=== PATIENT | male | born 1970 | race Caucasian/White ===

== ENCOUNTER 2020-10-16 20:29 | Observation (INO) | payer OTHER, SELFPAY ==
[2020-10-16 20:30] VITALS: BP 112/83; PULSE 110; RESP 16; TEMP 36.1; O2SAT 96; BMI 29.9
--- NOTE | 2020-10-16 20:54 | CT_ITS ---
EXAM: CT HEAD WITHOUT INTRAVENOUS CONTRAST : 1970 CLINICAL INDICATION: dizziness TECHNIQUE: Multiple axial images were obtained of the head without intravenous contrast. This CT exam was performed using one or more of the following dose reduction techniques: automated exposure control, adjustment of the mA and/or kV according to patient size, and/or use of iterative reconstruction technique. This report was created using [employer] report generation technology. COMPARISON: None. FINDINGS: BRAIN AND EXTRA-AXIAL SPACES: Unremarkable. No intra- or extra-axial hemorrhage. No evidence of acute infarct. No intracranial mass or mass effect. There is preservation of the montgomery/white matter interface. Posterior fossa structures are unremarkable. Ventricles are appropriate for age. No hydrocephalus. Basal cisterns are patent. BONES/JOINTS: Unremarkable. No discrete lytic or blastic abnormalities. SINUSES: Unremarkable as visualized. Clear. MASTOID AIR CELLS: Unremarkable. Clear. ORBITS: Visualized globes, extraocular muscles, optic nerves and retrobulbar fat appear unremarkable. CT/Brain/Head without Contrast IMPRESSION: Negative head/brain CT without intravenous contrast. Individualized dose optimization techniques were used for this CT. at 2210 Reported and signed by: Rohan Chavez MD Electronically Signed: Rohan Chavez MD at 22:10 EDT Tel , Service support ,
--- NOTE | 2020-10-16 20:54 | EKG12_ITS ---
Test Reason : DIZZINESS Blood Pressure : / mmHG Vent. Rate : 106 BPM Atrial Rate : 106 BPM P-R Int : 416 ms QRS Dur : 086 ms QT Int : 364 ms P-R-T Axes : 015 043 014 degrees QTc Int : 483 ms Sinus tachycardia with 1st degree A-V block Otherwise normal ECG Confirmed by BC GONZALEZ, CHICO ([id number]), photo editor MADISON WOODS ([id number]) on 10/20/2020 1:05:23 PM Referred By: ANANDA Confirmed By:CIHCO YANCEY MD
--- NOTE | 2020-10-16 20:55 | EDS_ITS ---
HPI History of Present Illness Chief Complaint: Dizziness Detail of Chief Complaint: Dizziness that started 24 hours ago. Informant: patient Narrative Narrative: Patient presents to the emergency department complaint of dizziness that started 24 hours ago. Patient complains of lightheadedness especially with turning his head certain ways or bending over to pick things up. He denies any overt tenderness type symptoms. Patient gives history that he was sick about 3 weeks ago with body aches and sweats and fatigue that lasted about 36 hours. He denied cough at that time or other Covid symptoms. He had no loss of taste or smell. Patient denies any chest pain or shortness of breath. He did have some discomfort in his right shoulder 3 weeks ago and some discomfort to his skin on his scalp that is now mostly resolved. Patient denies any chest pain or palpitations. Prior similar symptoms: No PFSH PFS Medical History (Updated 10/16/20 @ 22:[address] Cele Fish, DO) Erectile dysfunction Home Medications tadalafil [Cialis] 5 mg PO PRN PRN 10/16/20 [History Last Taken Unknown] Allergy/AdvReac Type Severity Reaction Status Date / Time venom-honey bee Allergy Anaphylaxis Verified 10/16/20 20:33 [bee venom (honey bee)] Surgical History (Updated 10/16/20 @ 20:45 by Gillian Tolbert) History of orthopedic surgery Social History Smoking Status: Former smoker ROS ROS ED Constitutional Constitutional ED: Reports systems reviewed and no addt'l complaints, except as documented; Denies body ache(s), change in weight or chills Eyes Eyes: Denies acute decrease in peripheral vision, change in vision, double vision or loss of vision ENT ENT ED: Reports none; Denies ear pain, lip swelling, loss taste/smell, neck pain, otalgia or sore throat Cardiovascular Cardiovascular: Reports none; Denies abdominal pain, chest pain with activity, leg edema, lightheadedness, palpitations, rapid heart rate or syncope Respiratory/Chest Respiratory/Chest: Reports none; Denies change in mental status, dry cough, dyspnea, hemoptysis, shortness of breath at rest or shortness of breath with exertion Gastrointestinal Gastrointestinal: Reports none; Denies abdominal pain, change in stool character, diarrhea, hematemesis, hematochezia, melena, rectal bleeding or vomiting Genitourinary Genitourinary ED: Reports none; Denies abdominal discomfort, anuria, dysuria, genital pain or polyuria Musculoskeletal Musculoskeletal: Reports none; Denies arthralgias, back pain, difficulty walking, extremity pain, muscle weakness or myalgias Integumentary Reports none; Denies abscess or rash Neurologic Neurologic: Reports none and other Details: Dizziness ; Denies abnormal gait, confusion, focal weakness, frequent falls, headache(s), loss of vision, numb ness, paresthesias, radicular pain, vertigo or weakness Psychiatric Psychiatric: Reports systems reviewed and no addt'l complaints, except as documented and none; Denies behavioral changes, confusion, difficulty concentrating, hallucinations, suicidal ideation, tactile hallucinations or visual hallucinations Endocrine Endocrinology: Denies none, cold intolerance, excessive sweating, fatigue or heat intolerance Hematologic/Lymphatic Hematologic/Lymphatic: Reports none; Denies anemia, easy bleeding or easy bruising Allergic/Immunologic Allergic/Immunologic ED: Denies as per HPI, none, lip swelling, mouth swelling, throat swelling, tongue swelling or hives EXAM Physical Exam Const Vital Signs: 10/16/20 20:30 10/16/20 20:41 10/16/20 21:14 Temperature 96.9 F L Temperature Source Temporal Pulse Rate 110 H Pulse Rate [Lying] 99 Pulse Rate [Sitting] 106 H Pulse Rate [Standing] 118 H Respiratory Rate 16 Respiratory Effort Normal Non-Labored Respiratory Pattern Normal Blood Pressure 112/83 H Blood Pressure [Lying] 91/68 Blood Pressure [Sitting] 111/72 Blood Pressure [Standing] 96/72 Blood Pressure Mean 92 Blood Pressure Mean [Lying] 75 Blood Pressure Mean [Sitting] 85 Blood Pressure Mean [Standing] 80 Pulse Ox 96 Oxygen Delivery Method Room Air Positive well nourished and well developed General Appearance ED: well developed and NAD HEENT Reports TM's clear and moist mucous membranes normocephalic and atraumatic; Negative for trauma or tenderness Tympanic Membrane ED: Yes TM's clear Eyes PERRL and EOMs intact bilaterally General Eye ED: Negative for pale conjunctiva or scleral icterus Neck no lymphadenopathy, supple and no JVD General: Negative for tenderness Chest Wall inspection of chest normal and palpation of chest normal Chest: Negative for tenderness Resp normal respiratory effort and clear to auscultation bilaterally Effort and Inspection: Negative for respiratory distress or pain with movement Auscultation: Negative for rhonchi, wheezes or diminished lung sounds Cardio regular rate, regular rhythm, S1 normal heart sound, S2 normal heart sound and no murmurs Peripheral Pulses: pulses 2+ throughout GI normal to inspection, nondistended, normoactive bowel sounds, soft to palpation, non-tender, non-distended and no masses Back/Spine no CVA tenderness and no thoracic nor lumbar tenderness Extremity normal to inspection General Extremety ED: Negative for edema General Extremity: Negative for edema Neuro oriented x3, CN's II-XII intact bilaterally, no sensory deficits noted and gait normal Neuro Narrative: Finger-nose and heel regan testing within normal limits, negative Romberg, negative pronator drift. Hallpike maneuver performed was negative for nystagmus. Sensorium / Orientation: awake, alert, oriented to person, oriented to place and oriented to time Motor Exam: strength 5/5 throughout and strength abnormal Psych mental status grossly normal Skin no rashes or lesions noted and no wounds MDM MDM MDM Narrative Medical decision making narrative: With orthostatic testing the patient's heart rate increases into the 120s and he is dizzy with standing. His blood pressure intermittently is in the 90s systolic which is unusual for him. Patient had repeat EKGs which showed accelerated junctional rhythm and questionable A. fib. Case discussed with hospitalist will evaluate patient for admission Lab Data Attestation: I reviewed the patient's lab results. Labs: Laboratory Results - last 24 hr 10/16/20 10/16/20 20:55 20:55 WBC 7.7 RBC 5.19 Hgb 14.9 Hct 45.4 MCV 87.5 MCH 28.7 MCHC 32.8 RDW Std Deviation 39.3 RDW Coeff of Marcello 12.4 Plt Count 376 MPV 9.2 Immature Gran % (Auto) 0.300 Neut % (Auto) 63.3 Lymph % (Auto) 19.4 Pocahontas % (Auto) 14.1 H Eos % (Auto) 2.3 Baso % (Auto) 0.6 Absolute Neuts (auto) 4.9 Absolute Lymphs (auto) 1.50 Nucleated RBC % 0 Sodium 139 Potassium 3.8 Chloride 108 H Carbon Dioxide 26.0 Anion Gap 5 BUN 20 H Creatinine 1.15 Estim Creat Clear Calc 83.67 Est GFR (MDRD) Af Amer 87 Est GFR (MDRD) Non-Af 72 BUN/Creatinine Ratio 17.4 Glucose 94 Calcium 9.0 Troponin I High Sens 7.3 EKG Initial EKG: Attestation: I personally reviewed and interpreted this EKG as follows: Comments: Computer read EKG as sinus tachycardia however I suspect a likely junctional tachycardia. Treatment and Re-Evaluation Comments:: Repeat EKG obtained showed accelerated junctional rhythm followed by another EKG that showed short run of atrial fibrillation. Discharge Plan Triage Chief Complaint: Dizziness ED Provider: Cele Fish Dx/Rx/DC Orders Clinical Impression: Cardiac dysrhythmia, Orthostatic hypotension, Dizziness Prescriptions: No Action tadalafil [Cialis] 5 mg Tablet 5 mg PO PRN PRN (Reason: Erectile Dysfunction) RF: 0 Primary Care Provider: Deepthi Barrios Referrals: Deepthi Barrios MD [Primary Care Provider] - Disposition Disposition: Acute Care Hospital [facility]
[2020-10-16 21:10] LABS: Absolute Neutrophil Count 4.9 X10^3/uL (2.0-7.7); Basophil# 0.05 X10^3/uL; Basophil% 0.6 % (0-1); Eosinophil# 0.18 X10^3/uL; Eosinophils% 2.3 % (0-5); Hematocrit 45.4 % (40-54); Hemoglobin 14.9 g/dL (13.0-16.5); Lymphocyte % 19.4 % (19-41); Mean Corp Hgb Conc 32.8 g/dL (32-36); Mean Corpuscular Hgb 28.7 pg (27.0-32.0); Mean Corpuscular Volume 87.5 fL (80-94); Mean Platelet Vol. 9.2 fl (6.2-12.0); Monocyte# 1.09 X10^3/uL; Monocyte% 14.1 % (0-10); NRBC Flagged by Analyzer 0 % (0-5); Neutrophil # 4.88 X10^3/uL (2.7-7.7); Neutrophil % 63.3 % (47-70); Platelet Count 376 K/mm3 (150-450); RBC Distribution Width CV 12.4 % (11.6-14.6); RBC Distribution Width SD 39.3 fl (35.1-43.9); Red Blood Count 5.19 M/mm3 (4.6-6.2); White Blood Count 7.7 K/mm3 (4.4-11.0)
[2020-10-16] MEDS: Meclizine HCl 25 MG Tablet PO (21:11)
[2020-10-16 21:14] VITALS: BP 111/72; BP 91/68; BP 96/72; PULSE 106; PULSE 118; PULSE 99
[2020-10-16 21:25] LABS: Anion Gap 5 (5-15); BUN 20 mg/dL (7-18); BUN/Creat Ratio 17.4 RATIO (10-20); Chloride 108 mmol/L (98-107); Creatinine, Serum 1.15 mg/dL (0.70-1.30); EST Glomerular Filtration Rate 72 mL/min (>60); Est Glom Filt Rate - Afr Amer 87 mL/min (>60); Estimated Creatinine Clearance 83.67 ml/min; Glucose 94 mg/dL (74-106); Potassium 3.8 mmol/L (3.5-5.1); Sodium Level 139 mmol/L (136-145); Troponin-I HS 7.3 pg/mL (3.0-78.5)
--- NOTE | 2020-10-16 21:52 | EKG12_ITS ---
Test Reason : DYSRYTHMIA Blood Pressure : / mmHG Vent. Rate : 103 BPM Atrial Rate : 101 BPM P-R Int : 000 ms QRS Dur : 086 ms QT Int : 356 ms P-R-T Axes : 000 031 021 degrees QTc Int : 466 ms Accelerated Junctional rhythm with retrograde conduction Abnormal ECG Confirmed by BC GONZALEZ, CHICO ([id number]), food editor MADISON WOODS ([id number]) on 10/20/2020 1:05:45 PM Referred By: ANANDA Confirmed By:CHICO YANCEY MD
--- NOTE | 2020-10-16 21:53 | EKG12_ITS ---
Test Reason : DYSRYTHMIA Blood Pressure : / mmHG Vent. Rate : 096 BPM Atrial Rate : 101 BPM P-R Int : 000 ms QRS Dur : 086 ms QT Int : 360 ms P-R-T Axes : 000 058 014 degrees QTc Int : 454 ms Atrial fibrillation Septal infarct , age undetermined Abnormal ECG Confirmed by BC GONZALEZ, CHICO ([id number]), website/blog editor MADISON WOODS ([id number]) on 10/20/2020 1:06:02 PM Referred By: ANANDA Confirmed By:CHICO YANCEY MD
[2020-10-16 22:24] VITALS: BP 120/86; PULSE 94; RESP 22; TEMP 36.1; O2SAT 98
--- NOTE | 2020-10-16 22:34 | PCM.HP.STD ---
HPI - General General Date of Admission: 10/16/20 Date of Service: 10/16/20 Chief Complaint: Lightheadedness HPI Narrative CHARLA RUIZ, is a 49 M with previous no significant medical history who presents to emergency department with persistent lightheadedness that started about 24 hours prior to presentation. His lightheadedness is more pronounced when he sits up and when he moves his head. He became so lightheadedness and things felt dark that he almost took a knee. He feels like blood rushing into his head. When he bends his knees he also feels like blood rushing to his extremities. Associated with her symptom is jitteriness. He denies any palpitations. At the emergent department he felt lightheaded with standing up; also he had T wave changes when he stood up. Further he had multiple different EKGs morphologies at the emergency department. He reported that about 3 to 4 weeks ago he was ill. He described his illness as a tightness in his shoulders; malaise; muscle aches; and severe lethargy. He denied any loss of taste or smell sensation at that time. This illness lasted for about 2 days. [facility] Medical History Alcohol abuse Carpal tunnel syndrome of right wrist Erectile dysfunction Former smoker GERD (gastroesophageal reflux disease) Home Medications tadalafil [Cialis] 5 mg PO PRN PRN 10/16/20 [History Last Taken Unknown] Allergy/AdvReac Type Severity Reaction Status Date / Time venom-honey bee Allergy Anaphylaxis Verified 10/16/20 20:33 [bee venom (honey bee)] Family History Sister Breast cancer Surgical History History of orthopedic surgery Social History household members: spouse and family housing: house number of children: 2 service: No current occupational status: 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 Vital Signs Vital Signs Vital Signs: 10/16/20 20:30 10/16/20 20:41 10/16/20 21:14 Temperature 96.9 F L Temperature Source Temporal Pulse Rate 110 H Pulse Rate [Lying] 99 Pulse Rate [Sitting] 106 H Pulse Rate [Standing] 118 H Respiratory Rate 16 Respiratory Effort Normal Non-Labored Respiratory Pattern Normal Blood Pressure 112/83 H Blood Pressure [Lying] 91/68 Blood Pressure [Sitting] 111/72 Blood Pressure [Standing] 96/72 Blood Pressure Mean 92 Blood Pressure Mean [Lying] 75 Blood Pressure Mean [Sitting] 85 Blood Pressure Mean [Standing] 80 Pulse Ox 96 Oxygen Delivery Method Room Air 10/16/20 22:24 Temperature 96.9 F L Temperature Source Temporal Pulse Rate 94 Pulse Rate [Lying] Pulse Rate [Sitting] Pulse Rate [Standing] Respiratory Rate 22 H Respiratory Effort Respiratory Pattern Blood Pressure 120/86 H Blood Pressure [Lying] Blood Pressure [Sitting] Blood Pressure [Standing] Blood Pressure Mean 97 Blood Pressure Mean [Lying] Blood Pressure Mean [Sitting] Blood Pressure Mean [Standing] Pulse Ox 98 Oxygen Delivery Method Room Air Weight Weight: 97.522 kg Body Mass Index (BMI) 29.9 Results Lab / Micro Data Result Diagrams: 10/16/20 20:55 10/16/20 20:55 Labs: Laboratory Results - last 24 hr 10/16/20 10/16/20 20:55 20:55 WBC 7.7 RBC 5.19 Hgb 14.9 Hct 45.4 MCV 87.5 MCH 28.7 MCHC 32.8 RDW Std Deviation 39.3 RDW Coeff of Marcello 12.4 Plt Count 376 MPV 9.2 Immature Gran % (Auto) 0.300 Neut % (Auto) 63.3 Lymph % (Auto) 19.4 Mcpherson % (Auto) 14.1 H Eos % (Auto) 2.3 Baso % (Auto) 0.6 Absolute Neuts (auto) 4.9 Absolute Lymphs (auto) 1.50 Nucleated RBC % 0 Sodium 139 Potassium 3.8 Chloride 108 H Carbon Dioxide 26.0 Anion Gap 5 BUN 20 H Creatinine 1.15 Estim Creat Clear Calc 83.67 Est GFR (MDRD) Af Amer 87 Est GFR (MDRD) Non-Af 72 BUN/Creatinine Ratio 17.4 Glucose 94 Calcium 9.0 Troponin I High Sens 7.[address] 10/16/20 20:54 IMPRESSION: Negative head/brain CT without intravenous contrast. Individualized dose optimization techniques were used for this CT. at 2210 Reported and signed by: Rohan Chavez MD Electronically Signed: Rohan Chavez MD at 22:10 EDT Tel , Service support , Assessment & Plan Assessment/Plan (1) Cardiac dysrhythmia: QUALIFIERS: Arrhythmia type: other cardiac arrhythmia Qualified Code(s): I49.8 - Other specified cardiac arrhythmias (2) Orthostatic hypotension: PLAN: Dysrhythmia Will admit to the progressive care unit on telemetry. Differentials include POTS; atrial fibrillation; junctional tachycardia Review of Emergency department EKG showed junctional tachycardia; and EKG rhythm without P waves. EKG with prolonged QTC. Review of emergency department labs showed potassium of 3.8. Potassium replacement ordered. Check magnesium. Check TSH Radiologist impression of brain CT: Negative head/brain CT without intravenous contrast. Actual CT head image was independently visualized and I agree with radiologist interpretation. Cardiology consult Orthostatic hypotension At the ED reportedly although blood pressure did not drop with standing up patient had tachycardia and felt lightheaded with standing. IV fluids ordered. Repeat orthostatic blood pressure. Check echocardiogram. Alcohol abuse Counseled. Drinks about 3-4 beers about 2-3 times per week. DVT prophylaxis Subcutaneous Lovenox ordered. Charges/Coding Visit Charges OBSV E&M: [id number] Initial observation care L3
[2020-10-16 22:50] VITALS: BP 121/86; BP 124/67; BP 125/86; PULSE 105; PULSE 91
--- NOTE | 2020-10-16 22:50 | ECHOD_ITS ---
Reason For Study: Dizziness Procedure This was a 2D Doppler, Color Flow transthoracic echocardiogram. Exam performed portable in patient room. Left Ventricle Normal LV size. Moderate eccentric left ventricular hypertrophy. Left ventricular systolic function is normal. The estimated ejection fraction is 60 %. Normal diastology for age. No regional wall motion abnormalities noted. Right Ventricle Normal RV size. Normal systolic function. Atria Normal left atrium. Normal right atrium. Mitral Valve Normal mitral valve. Tricuspid Valve Normal tricuspid valve. Aortic Valve Normal aortic valve. Trisinus/trileaflet aortic valve. Pulmonic Valve Normal pulmonic valve. Great Vessels Normal aortic root. The pulmonary artery is normal size. Normal inferior vena cava. Pericardium/Pleural No pericardial effusion. MMode/2D Measurements & Calculations LVIDd: 4.3 cm IVSd: 1.6 cm LA dimension: 3.7 cm LVIDs: 2.7 cm LVPWd: 1.3 cm FS: 37.3 % LAV(MOD-bp): 61.6 ml LA A4 area: 20.7 cm2 RA A4 area: 19.4 cm2 LAV(MOD-bp) Indexed: 28.4 ml/m2 LAV(MOD-sp2): 56.5 ml LAV(MOD-sp4): 57.4 ml Time Measurements MV dec time: 0.11 sec Doppler Measurements & Calculations MV E max srini: 101.9 cm/sec Lat Peak E' Srini: 20.4 cm/sec Med Peak E' Srini: 15.6 cm/sec MV A max srini: 56.7 cm/sec E/E' lat: 5.0 E/E' med: 6.5 MV E/A: 1.8 MV V2 max: 120.4 cm/sec MV P1/2t max srini: 120.8 cm/sec Ao V2 max: 138.0 cm/sec MV max P.8 mmHg MV P1/2t: 35.7 msec Ao max P.6 mmHg MV V2 mean: 51.4 cm/sec MV dec slope: 990.4 cm/sec2 MV mean P.4 mmHg MVA(P1/2t): 6.2 cm2 MV V2 VTI: 20.9 cm LV V1 max: 134.7 cm/sec PA V2 max: 105.9 cm/sec LV V1 max P.3 mmHg ECHO/Echo Complete Interpretation Summary Normal LV size. Moderate eccentric left ventricular hypertrophy. Left ventricular systolic function is normal. The estimated ejection fraction is 60 %. Normal diastology for age. Ordering Physician: Jair De Jesus Referring Physician: Deepthi Barrios M.D. Performed By: Vini Masters RCS
[2020-10-16 22:51] VITALS: BP 126/71; PULSE 81; PULSE 87; RESP 16; TEMP 36.7; O2SAT 98; BMI 30.1
[2020-10-16 23:11] LABS: Magnesium 2.2 mg/dL (1.6-2.6)
[2020-10-16] MEDS: 0.9% Normal Saline 1,000 ML 125 ML IV (23:16)
[2020-10-16] MEDS: Potassium Chloride Oral Tablet 20 MEQ PO (23:24)
[2020-10-16] MEDS: 0.9% Saline Lock 10 ML Syringe IV (23:25)
[2020-10-16 23:39] VITALS: O2SAT 98
[2020-10-17] VITALS (9 sets, daily range): BP systolic 110–117; BP diastolic 69–79; PULSE 79–94; RESP 12–16; TEMP 36.8–37.1; O2SAT 94–97
[2020-10-17 06:04] LABS: Absolute Lymphocyte Count 1.03 X10^3/uL (0.83-4.51); Absolute Neutrophil Count 4.2 X10^3/uL (2.0-7.7); Basophil# 0.03 X10^3/uL; Basophil% 0.5 % (0-1); Eosinophil# 0.18 X10^3/uL; Eosinophils% 2.9 % (0-5); Hematocrit 44.2 % (40-54); Hemoglobin 14.3 g/dL (13.0-16.5); Lymphocyte # 1.03 X10^3/ul (0.83-4.51); Lymphocyte % 16.5 % (19-41); Mean Corp Hgb Conc 32.4 g/dL (32-36); Mean Corpuscular Hgb 28.5 pg (27.0-32.0); Mean Platelet Vol. 9.1 fl (6.2-12.0); Monocyte# 0.85 X10^3/uL; Monocyte% 13.6 % (0-10); NRBC Flagged by Analyzer 0 % (0-5); Neutrophil # 4.15 X10^3/uL (2.7-7.7); Neutrophil % 66.2 % (47-70); Platelet Count 315 K/mm3 (150-450); RBC Distribution Width CV 12.5 % (11.6-14.6); RBC Distribution Width SD 39.8 fl (35.1-43.9); Red Blood Count 5.02 M/mm3 (4.6-6.2); White Blood Count 6.3 K/mm3 (4.4-11.0)
[2020-10-17 06:40] LABS: Anion Gap 6 (5-15); BUN 16 mg/dL (7-18); BUN/Creat Ratio 18.4 RATIO (10-20); Calcium,Total 8.1 mg/dL (8.5-10.1); Chloride 110 mmol/L (98-107); Creatinine, Serum 0.87 mg/dL (0.70-1.30); EST Glomerular Filtration Rate 99 mL/min (>60); Est Glom Filt Rate - Afr Amer 120 mL/min (>60); Estimated Creatinine Clearance 110.59 ml/min; Glucose 94 mg/dL (74-106); Potassium 3.8 mmol/L (3.5-5.1); Sodium Level 140 mmol/L (136-145)
[2020-10-17] MEDS: 0.9% Normal Saline 1,000 ML 125 ML IV ×2 (06:43→13:56)
[2020-10-17] MEDS: Enoxaparin 40 MG/0.4 ML Syringe SC (10:31)
--- NOTE | 2020-10-17 14:14 | CON.PCM.CA_ITS ---
Assessment & Plan Assessment/Plan (1) Cardiac dysrhythmia: QUALIFIERS: Arrhythmia type: other cardiac arrhythmia Qualified Code(s): I49.8 - Other specified cardiac arrhythmias PLAN: He does have cardiac dysrhythmia with sinus rhythm, Wenckebach periodicity, and intermittent junctional rhythm. His echocardiogram demonstrated significant eccentric left ventricular hypertrophy. Hypotension could be caused on the basis of relative dehydration or his dysrhythmia. At this particular time I would recommend that we place a 24-hour Holter monitor on him as an outpatient and then have him follow-up in the office. I would hold of f on any medication at this particular time. I had discussed this with him at the rounds this morning. Further recommendations will be made based on the results of his Holter monitor. Thank you for allowing me to participate in the care of your patient. Please don't hesitate to call if any issues arise. HPI Consult Data Date of Consult: 10/17/20 HPI Narrative HPI Narrative: CHARLA RUIZ, is a 49 M who presents with dizzy spells but no oseas syncope. He has had no previous cardiac history he denies any chest pain or paroxysmal nocturnal dyspnea or pedal edema. On admission he was noted to have some cardiac dysrhythmias and cardiology was called for further evaluation and management. He denies any chest pain or pressure. His EKG demonstrated normal sinus rhythm with a first-degree AV block Wenckebach periodicity as well as junctional rhythm. 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 Smoking Status: Former smoker ROS Constitutional Constitutional: Denies fever(s) or weight loss Eyes Eyes: Reports as per HPI ENT HEENT: Reports as per HPI Cardiovascular Cardiovascular: Reports other Respiratory/Chest Respiratory/Chest: Reports other Gastrointestinal Gastrointestinal: Denies change in bowel habits, nausea, vomiting or weight changes Genitourinary Genitourinary: Denies difficulty urinating Musculoskeletal Musculoskeletal: Denies joint stiffness or muscle weakness Integumentary Integumentary: Denies lesions Neurologic Neurologic: Reports dizziness; Denies syncope Psychiatric Psychiatric: Denies anxiety Endocrine Endocrinology: Denies excessive sweating or fatigue Hematologic/Lymphatic Hematologic/Lymphatic: Denies anemia Allergic/Immunologic Allergic/Immunologic: Denies seasonal rhinorrhea Physical Exam Const oriented x3 and healthy appearing Orientation / Consciousness: awake HEENT normocephalic Eyes PERRL and conjunctivae normal Neck supple, no JVD and no carotid bruits Chest inspection of chest normal Resp normal respiratory effort and clear to auscultation bilaterally Cardio Palpation: normal PMI Rate: regular rate Rhythm: regular rhythm Heart Sounds: S1 normal and S2 normal Peripheral Pulses: pulses 2+ throughout GI normal to inspection, nondistended, normoactive bowel sounds Extremity normal to inspection and no clubbing, cyanosis or edema Psych mental status grossly normal Objective Data Vital Signs: Vital Signs Temp Pulse Resp BP Pulse Ox 98.2 F 83 16 113/79 95 10/17/20 13:15 10/17/20 13:15 10/17/20 13:15 10/17/20 13:15 10/17/20 13:15 Oxygen Delivery Method Room Air Weight: 215 lb 13.321 oz Body Mass Index (BMI) 30.1 Intake & Output: Intake and Output for Last 24 Hours 10/15/20 10/16/20 10/17/20 23:59 23:59 23:59 Intake Total 500 / 500 2553.33 / 2553.33 Balance 500 / 500 2553.33 / 2553.33 Lab / Micro Data Result Diagrams: 10/17/20 05:46 10/17/20 05:46 Labs: Laboratory Results - last 24 hr 10/16/20 10/16/20 10/16/20 20:55 20:55 20:55 WBC 7.7 RBC 5.19 Hgb 14.9 Hct 45.4 MCV 87.5 MCH 28.7 MCHC 32.8 RDW Std Deviation 39.3 RDW Coeff of Marcello 12.4 Plt Count 376 MPV 9.2 Immature Gran % (Auto) 0.300 Neut % (Auto) 63.3 Lymph % (Auto) 19.4 [place] % (Auto) 14.1 H Eos % (Auto) 2.3 Baso % (Auto) 0.6 Absolute Neuts (auto) 4.9 Absolute Lymphs (auto) 1.50 Nucleated RBC % 0 Sodium 139 Potassium 3.8 Chloride 108 H Carbon Dioxide 26.0 Anion Gap 5 BUN 20 H Creatinine 1.15 Estim Creat Clear Calc 83.67 Est GFR (MDRD) Af Amer 87 Est GFR (MDRD) Non-Af 72 BUN/Creatinine Ratio 17.4 Glucose 94 Calcium 9.0 Magnesium 2.2 Troponin I High Sens 7.3 10/17/20 10/17/20 05:46 05:46 WBC 6.3 RBC 5.02 Hgb 14.3 Hct 44.2 MCV 88.0 MCH 28.5 MCHC 32.4 RDW Std Deviation 39.8 RDW Coeff of Marcell[place] 12.5 Plt Count 315 MPV 9.1 Immature Gran % (Auto) 0.300 Neut % (Auto) 66.2 Lymph % (Auto) 16.5 L [place] % (Auto) 13.6 H Eos % (Auto) 2.9 Baso % (Auto) 0.5 Absolute Neuts (auto) 4.2 Absolute Lymphs (auto) 1.03 Nucleated RBC % 0 Sodium 140 Potassium 3.8 Chloride 110 H Carbon Dioxide 24.0 Anion Gap 6 BUN 16 Creatinine 0.87 Estim Creat Clear Calc 110.59 Est GFR (MDRD) Af Amer 120 Est GFR (MDRD) Non-Af 99 BUN/Creatinine Ratio 18.4 Glucose 94 Calcium 8.1 L Magnesium Troponin I High Sens Cardiology Labs/Tests 10/16/20 20:55: WBC 7.7, RBC 5.19, Hgb 14.9, Hct 45.4, MCV 87.5, MCH 28.7, MCHC 32.8, Plt Count 376, MPV 9.2, Immature Gran % (Auto) 0.300, Neut % (Auto) 63.3, Lymph % (Auto) 19.4, [place] % (Auto) 14.1 H, Eos % (Auto) 2.3, Baso % (Auto) 0.6, Absolute Neuts (auto) 4.9, Nucleated RBC % 0 10/16/20 20:55: Sodium 139, Potassium 3.8, Chloride 108 H, Carbon Dioxide 26.0, Anion Gap 5, BUN 20 H, Creatinine 1.15, Est GFR (MDRD) Af Amer 87, Est GFR (MDRD) Non-Af 72, BUN/Creatinine Ratio 17.4, Glucose 94, Calcium 9.0 10/16/20 20:55: Magnesium 2.2 10/17/20 05:46: WBC 6.3, RBC 5.02, Hgb 14.3, Hct 44.2, MCV 88.0, MCH 28.5, MCHC 32.4, Plt Count 315, MPV 9.1, Immature Gran % (Auto) 0.300, Neut % (Auto) 66.2, Lymph % (Auto) 16.5 L, [place] % (Auto) 13.6 H, Eos % (Auto) 2.9, Baso % (Auto) 0.5, Absolute Neuts (auto) 4.2, Nucleated RBC % 0 10/17/20 05:46: Sodium 140, Potassium 3.8, Chloride 110 H, Carbon Dioxide 24.0, Anion Gap 6, BUN 16, Creatinine 0.87, Est GFR (MDRD) Af Amer 120, Est GFR (MDRD) Non-Af 99, BUN/Creatinine Ratio 18.4, Glucose 94, Calcium 8.1 L Rhythm: EKG: ECHO: Preserved left ventricular systolic function. Stress Test: Cardiac Cath: PCI: CT Surgery: Holter monitor: EPS: PPM: CXR: Chest CT Scan: Radiography Diagnostic Testing: Radiology Impression Brain CT 10/16/20 20:54 IMPRESSION: Negative head/brain CT without intravenous contrast. Individualized dose optimization techniques were used for this CT. at 2210 Reported and signed by: Rohan Chavez MD Electronically Signed: Rohan Chavez MD at 22:10 EDT Tel , Service support , Echocardiogram 10/16/20 22:50 Interpretation Summary Normal LV size. Moderate eccentric left ventricular hypertrophy. Left ventricular systolic function is normal. The estimated ejection fraction is 60 %. Normal diastology for age. Ordering Physician: Jair De Jesus Referring Physician: Deepthi Barrios M.D. Performed By: Vini Masters RCS
--- NOTE | 2020-10-17 14:42 | PCM.DC ---
Discharge Instructions Diet Discharge Diet: No restrictions Activity Discharge Activity: Return to Normal Activity Dressing / Incision Call your doctor if you observe: Fever of 101 or Higher, Shortness of breath, Dizziness, Swelling in the ankles, Chest pain and Increased palpitations (irregular heartbeat) Follow Up Care Test Results: Test results from this visit will be discussed in further detail at your follow-up appointment, if applicable. Discharge Plan Admission Admit Date/Time: 10/16/20 22:16 Attending Provider: Breezy Montelongo Primary Care Provider: Deepthi Barrios Consulting Providers: Reymundo Watt Discharge Orders/Prescriptions Prescriptions: Continued tadalafil [Cialis] 5 mg Tablet 5 mg PO PRN PRN (Reason: Erectile Dysfunction) RF: 0 Other Ambulatory Orders: Cardiac Holter Monitor, Set-Up (Routine) Location: None Selected Ordered By: Dr. Breezy Montelongo Referrals / Follow Up: Reymundo Watt MD [STAFF PHYSICIAN] - Within 2 Weeks Deepthi Barrios MD [Primary Care Provider] - In 1 Week Disposition Disposition (needs filled in before D/C Order can be placed): Home, Self Care
--- NOTE | 2020-10-17 15:17 | DS.PCM_ITS ---
Providers Date of Admission: 10/16/20 Primary Care Physician: Dr. Deepthi Barrios MD Consultations 10/16/20 22:50 Consult: Cardiology Routine Consulting Provider: Reymundo Watt Reason for Consult: Dysrhythmia EMERGENT Consult: No MD Notified: Yes Date Notified: 10/16/20 Time Notified: 22:15 Method of Notification: Text Reason For Visit: DYSRHYTHMIA Diagnosis Discharge Diagnosis (1) Cardiac dysrhythmia: Status: Acute Code(s): I49.9 - Cardiac arrhythmia, unspecified Qualifiers: Arrhythmia type: other cardiac arrhythmia Qualified Code(s): I49.8 - Other specified cardiac arrhythmias Medications at Discharge Home Medications tadalafil [Cialis] 5 mg PO PRN PRN 10/16/20 Hospital Course Operations None Procedures 2-D Echocardiogram Summary of Care Provided Minutes Spent on Discharge: 35 Hospital Course: Per HPI: CHARLA RUIZ, is a 49 M with previous no significant medical history who presents to emergency department with persistent lightheadedness that started about 24 hours prior to presentation. His lightheadedness is more pronounced when he sits up and when he moves his head. He became so lightheadedness and things felt dark that he almost took a knee. He feels like blood rushing into his head. When he bends his knees he also feels like blood rushing to his extremities. Associated with her symptom is jitteriness. He denies any palpitations. At the emergent department he felt lightheaded with standing up; also he had T wave changes when he stood up. Further he had multiple different EKGs morphologies at the emergency department. He reported that about 3 to 4 weeks ago he was ill. He described his illness as a tightness in his shoulders; malaise; muscle aches; and severe lethargy. He denied any loss of taste or smell sensation at that time. This illness lasted for about 2 days. Hospital course: 1. Cardiac dysrhythmia with orthostatic hypotension?49-year-old male presented to the hospital with persistent lightheadedness and presyncope. He had an abnormal EKG with junctional rhythm and according to cardiology potential Wenckebach but never actually transition to A. fib. Echo today was unremarkable and cardiology felt that it would be safe for him to be discharged with a Holter monitor. He will need to follow-up with his PCP and cardiology within the next couple of weeks. He states that today he feels back to normal and has no lightheadedness, telemetry did not show any significant abnormalities. Marleni scussed with him the plan for discharge and he expressed understanding of the risk and benefits of going home and would like to go home today. Physical Exam Const alert, oriented x3 and no apparent distress General Appearance: cooperative HEENT normocephalic and moist oral mucous membranes Eyes PERRL, EOMs intact bilaterally and conjunctivae normal Neck supple and no JVD Resp normal respiratory effort, no retractions, no use of accessory muscles and clear to auscultation bilaterally Auscultation: Negative for crackles, rales, rhonchi or wheezes Cardio regular rate, regular rhythm, S1 normal heart sound, S2 normal heart sound and no murmurs GI soft to palpation, non-tender and non-distended; Negative for hepatosplenomegaly Extremity no clubbing, cyanosis or edema Skin no rashes or lesions noted Neuro no focal motor deficits and no sensory deficits noted Psych affect normal Appearance: appropriate Weight / BMI Weight Weight: 215 lb 13.321 oz Body Mass Index (BMI) 30.1 ABG / Lab / Microbiology Data Result Diagrams: 10/17/20 05:46 10/17/20 05:46 Laboratory: Laboratory Results - last 24 hr 10/16/20 10/16/20 10/16/20 20:55 20:55 20:55 WBC 7.7 RBC 5.19 Hgb 14.9 Hct 45.4 MCV 87.5 MCH 28.7 MCHC 32.8 RDW Std Deviation 39.3 RDW Coeff of Marcello 12.4 Plt Count 376 MPV 9.2 Immature Gran % (Auto) 0.300 Neut % (Auto) 63.3 Lymph % (Auto) 19.4 [place] % (Auto) 14.1 H Eos % (Auto) 2.3 Baso % (Auto) 0.6 Absolute Neuts (auto) 4.9 Absolute Lymphs (auto) 1.50 Nucleated RBC % 0 Sodium 139 Potassium 3.8 Chloride 108 H Carbon Dioxide 26.0 Anion Gap 5 BUN 20 H Creatinine 1.15 Estim Creat Clear Calc 83.67 Est GFR (MDRD) Af Amer 87 Est GFR (MDRD) Non-Af 72 BUN/Creatinine Ratio 17.4 Glucose 94 Calcium 9.0 Magnesium 2.2 Troponin I High Sens 7.3 10/17/20 10/17/20 05:46 05:46 WBC 6.3 RBC 5.02 Hgb 14.3 Hct 44.2 MCV 88.0 MCH 28.5 MCHC 32.4 RDW Std Deviation 39.8 RDW Coeff of [place]cell[place] 12.5 Plt Count 315 MPV 9.1 Immature Gran % (Auto) 0.300 Neut % (Auto) 66.2 Lymph % (Auto) 16.5 L [place] % (Auto) 13.6 H Eos % (Auto) 2.9 Baso % (Auto) 0.5 Absolute Neuts (auto) 4.2 Absolute Lymphs (auto) 1.03 Nucleated RBC % 0 Sodium 140 Potassium 3.8 Chloride 110 H Carbon Dioxide 24.0 Anion Gap 6 BUN 16 Creatinine 0.87 Estim Creat Clear Calc 110.59 Est GFR (MDRD) Af Amer 120 Est GFR (MDRD) Non-Af 99 BUN/Creatinine Ratio 18.4 Glucose 94 Calcium 8.1 L Magnesium Troponin I High Sens Radiography Diagnostic Testing: Radiology Impression Brain CT 10/16/20 20:54 IMPRESSION: Negative head/brain CT without intravenous contrast. Individualized dose optimization techniques were used for this CT. at 2210 Reported and signed by: Rohan Chavez MD Electronically Signed: Rohan Chavez MD at 22:10 EDT Tel , Service support , Echocardiogram 10/16/20 22:50 Interpretation Summary Normal LV size. Moderate eccentric left ventricular hypertrophy. Left ventricular systolic function is normal. The estimated ejection fraction is 60 %. Normal diastology for age. Ordering Physician: Jair De Jesus Referring Physician: Deepthi Barrios M.D. Performed By: Vini Masters RCS D/C Instructions Discharge Diet: No restrictions Call your doctor if you observe: Fever of 101 or Higher, Shortness of breath, Dizziness, Swelling in the ankles, Chest pain and Increased palpitations (irregular heartbeat) Meaningful Use Info Meaningful Use Diagnoses (Choose all that apply): None applicable Discharge Plan Admission Admit Date/Time: 10/16/20 22:16 Attending Provider: Breezy Montelongo Primary Care Provider: Deepthi Barrios Consulting Providers: Reymundo Watt Discharge Orders/Prescriptions Prescriptions: Continued tadalafil [Cialis] 5 mg Tablet 5 mg PO PRN PRN (Reason: Erectile Dysfunction) RF: 0 Other Ambulatory Orders: Cardiac Holter Monitor, Set-Up (Routine) Location: None Selected Ordered By: Dr. Breezy Montelongo Referrals / Follow Up: Reymundo Watt MD [STAFF PHYSICIAN] - Within 2 Weeks Deepthi Barrios MD [Primary Care Provider] - In 1 Week Disposition Disposition (needs filled in before D/C Order can be placed): Home, Self Care Charges/Coding Visit Charges OBSV E&M: 32544 Observation care discharge
== END 2020-10-17 15:17 | disposition home or self-care (01) ==
LOC: ED 22:13 → PCU 22:34
PROVIDERS: Admitting Provider Hospitalist; Emergency Provider Emergency Medicine; PCP Internal Medicine; Visit Provider Family Medicine
DX: I49.8 Other specified cardiac arrhythmias (principal); R42 Dizziness and giddiness; Z87.891 Personal history of nicotine dependence; I95.1 Orthostatic hypotension; K21.9 Gastro-esophageal reflux disease without esophagitis; F10.10 Alcohol abuse, uncomplicated; I44.0 Atrioventricular block, first degree
CPT/HCPCS: 36415; 70450; 80048; 83735; 84484; 85025; 93005; 93306; 96360; 96361; 96372; 99218; 99285; J7030; J7040; Q9957; A4216; G0378; J3490

== ENCOUNTER → 2020-10-17 15:20 | Outpatient (CLI) | payer OTHER, SELFPAY ==
[2020-10-16 22:51] VITALS: BMI 30.1
== END ==
PROVIDERS: PCP Internal Medicine; Visit Provider Family Medicine
DX: R00.2 Palpitations (principal); I49.9 Cardiac arrhythmia, unspecified
CPT/HCPCS: 93225; 93226

== ENCOUNTER → 2020-10-27 12:17 | Outpatient (CLI) | payer OTHER, SELFPAY ==
[2020-10-16 22:51] VITALS: BMI 30.1
[2020-10-23 15:42] VITALS: BMI 29.7
[2020-10-27 14:22] LABS: Ferritin 309 ng/mL (26-388); Iron 31 ug/dL (65-175); Iron Binding Capacity,Total 370 ug/dL (250-450)
--- NOTE | 2020-10-27 15:53 | STRESSREP ---
Stress Test Report Exercise stress test. Intermittent 2-1 heart block. 50-year-old man with a history of shortness of breath and weakness. Stress protocol: Resting EKG demonstrates normal sinus rhythm with intermittent 2-1 heart block with a rate of 83 bpm. Resting blood pressure was 120/70 mmHg. The patient exercised according to the regular Josh protocol for a maximum of 6 minutes and 9 seconds. The maximum workload attained was 7.2 metabolic equivalents. The maximum heart rate attained was 93 bpm which was 54% of maximum predicted heart rate. There was mild increase in the sinus rate and occasional periods of one-to-one conduction with a first-degree AV block. No high-grade AV block beyond 2-1 conduction was noted. The patient did experience significant shortness of breath necessitating termination of the test. The peak blood pressure was 122/78 mmHg. Conclusion: Exercise stress test with evidence of chronotropic incompetence. 2:1 heart block noted not improving with exercise. Moderate to marked functional aerobic impairment.
[2020-10-29 14:10] LABS: Angiotensin Convert Enzyme 33 U/L (14-82)
[2020-11-07 10:21] LABS: Lyme AB/Total Immuno 1.36 ISR (0.00-0.90)
== END ==
PROVIDERS: PCP Internal Medicine; Referring Provider Internal Medicine Cardiovascular Disease; Visit Provider Internal Medicine Cardiovascular Disease
DX: I44.1 Atrioventricular block, second degree (principal); I49.8 Other specified cardiac arrhythmias; R55 Syncope and collapse; R06.02 Shortness of breath; R53.1 Weakness
CPT/HCPCS: 36415; 82164; 82728; 83540; 83550; 86141; 86618; 93017

== ENCOUNTER → 2020-10-30 13:48 | Outpatient (CLI) | payer OTHER, SELFPAY ==
[2020-10-30 07:21] VITALS: BMI 29.7
[2020-10-30 16:16] LABS: Free T3 4.5 pg/mL (2.18-3.98); T4 Total, Thyroxin 13.8 ug/dL (4.5-12.1); Thyroid Stim Hormone (TSH) 0.03 uIU/mL (0.358-3.74)
[2020-11-03 12:07] LABS: PROEL- Albumin 3.4 g/dL (2.9-4.4); PROEL- Alpha-1 Globulin 0.3 g/dL (0.0-0.4); PROEL- Alpha-2 Globulin 0.9 g/dL (0.4-1.0); PROEL- Beta Globulin 1.1 g/dL (0.7-1.3); PROEL- Gamma Globulin 0.9 g/dL (0.4-1.8); PROEL- Globulin, Total 3.3 g/dL (2.2-3.9); PROEL- TOTAL PROTEIN 6.7 g/dL (6.0-8.5)
== END ==
PROVIDERS: PCP Internal Medicine; Referring Provider Internal Medicine Cardiovascular Disease; Visit Provider Internal Medicine Cardiovascular Disease
DX: I45.89 Other specified conduction disorders (principal); I44.1 Atrioventricular block, second degree; I51.7 Cardiomegaly; R53.1 Weakness; R55 Syncope and collapse; R42 Dizziness and giddiness
CPT/HCPCS: 36415; 84165; 84436; 84443; 84481

== ENCOUNTER → 2020-11-04 | Outpatient (CLI) | payer OTHER, SELFPAY ==
[2020-10-30 07:21] VITALS: BMI 29.7
[2020-11-07 12:08] LABS: Coproporphyrin I, Urine 26 ug/L (Undefined); Coproporphyrin I,24 Hour 34 ug/24 hr (0-24); Coproporphyrin III, Urine 12 ug/L (Undefined); Heptacarboxylporph.,24 Hour 3 ug/24 hr (0-4); Heptacarboxylporph.,Urine 2 ug/L (Undefined); Hexacarboxylporph.,24 Hour <1 ug/24 hr (0-1); Hexacarboxylporph.,Urine <1 ug/L (Undefined); Pentacarboxylporph,24 Hour 1 ug/24 hr (0-4); Pentacarboxylporphyrin,Urine 1 ug/L (Undefined); Uroporphyrin, 24 Hour 16 ug/24 hr (0-24); Uroporphyrin,Urine 12 ug/L (Undefined)
[2020-11-07 13:02] LABS: Coproporphyrin III,24 Hour 16 ug/24 hr (0-74)
== END | disposition home or self-care (01) ==
LOC: LABSPEC 08:09
PROVIDERS: PCP Internal Medicine; Referring Provider Internal Medicine Cardiovascular Disease; Visit Provider Internal Medicine Cardiovascular Disease
DX: I44.1 Atrioventricular block, second degree (principal); I45.89 Other specified conduction disorders; I51.7 Cardiomegaly; R42 Dizziness and giddiness; R53.1 Weakness; R55 Syncope and collapse
CPT/HCPCS: 81050; 84120

== ENCOUNTER → 2020-11-13 13:50 | Outpatient (CLI) | payer OTHER, SELFPAY ==
[2020-10-30 07:21] VITALS: BMI 29.7
[2020-11-13 09:40] LABS: Free T3 3.9 pg/mL (2.18-3.98); T4 Free Direct 1.15 ng/dL (0.76-1.46); Thyroid Stim Hormone (TSH) 0.01 uIU/mL (0.358-3.74)
--- NOTE | 2020-11-13 13:51 | US_ITS ---
STUDY: THYROID ULTRASOUND REASON FOR EXAM: Male, 50 years old. hyperthyroidism TECHNIQUE: Ultrasound evaluation of the thyroid was performed with real-time and static montgomery-scale imaging. COMPARISON: None. FINDINGS: RIGHT LOBE: The right lobe of the thyroid gland measures 5.9 x 1.5 x 1.1 cm. There is a homogeneous echotexture. 4 mm anechoic cyst of the superior right thyroid lobe (TR 1). No solid thyroid nodules. LEFT LOBE: The left lobe of the thyroid gland measures 5.1 x 1.6 x 1.6 cm. There is a homogeneous echotexture. There are no demonstrated solid, cystic or complex lesions. ISTHMUS: The isthmus measures 1 mm. The regional lymph nodes are normal. US/Thyroid IMPRESSION: 1. No solid/suspicious thyroid nodules. Electronically Signed: Eddie Mitchell MD ([place]) at 18:12 EDT , Service support ,
[2020-11-15 07:07] LABS: Thyroid Stim Immunoglob <0.10 IU/L (0.00-0.55)
[2020-11-15 08:38] LABS: Thyroid Peroxidase AB 17 IU/mL (0-34)
== END ==
PROVIDERS: PCP Internal Medicine; Referring Provider Internal Medicine; Visit Provider Internal Medicine
DX: E05.90 Thyrotoxicosis, unspecified without thyrotoxic crisis or storm (principal)
CPT/HCPCS: 36415; 76536; 84439; 84443; 84445; 84481; 86376

== ENCOUNTER → 2020-11-25 08:25 | Outpatient (CLI) | payer OTHER, SELFPAY ==
[2020-10-30 07:21] VITALS: BMI 29.7
[2020-11-17 11:37] VITALS: BMI 29.7
== END ==
PROVIDERS: PCP Internal Medicine; Referring Provider Internal Medicine Cardiovascular Disease; Visit Provider Internal Medicine Cardiovascular Disease
DX: I44.1 Atrioventricular block, second degree (principal); I51.89 Other ill-defined heart diseases; I45.89 Other specified conduction disorders; I51.7 Cardiomegaly; A69.29 Other conditions associated with Lyme disease; E05.90 Thyrotoxicosis, unspecified without thyrotoxic crisis or storm; R53.1 Weakness; R55 Syncope and collapse; R42 Dizziness and giddiness
CPT/HCPCS: 93225; 93226

== ENCOUNTER → 2021-02-18 12:03 | Outpatient (CLI) | payer OTHER, SELFPAY ==
[2021-02-18 15:34] LABS: T4 Free Direct 0.81 ng/dL (0.76-1.46); Thyroid Stim Hormone (TSH) 1.29 uIU/mL (0.358-3.74)
== END ==
PROVIDERS: Physician Assistant; PCP Internal Medicine; Referring Provider Internal Medicine; Visit Provider Internal Medicine
DX: Z20.822 Contact with and (suspected) exposure to COVID-19 (principal); E05.90 Thyrotoxicosis, unspecified without thyrotoxic crisis or storm; A69.20 Lyme disease, unspecified
CPT/HCPCS: 36415; 84439; 84443; 84481; 87635; U0005; U0003

== ENCOUNTER → 2024-08-28 | Outpatient (CLI) | payer OTHER, SELFPAY ==
--- NOTE | 2024-08-28 13:47 | ECHOD_ITS ---
Reason For Study Reason For Study: LVH Procedure This was a 2D Doppler, Color Flow transthoracic echocardiogram. Exam performed in department. Left Ventricle Normal LV size. Moderate eccentric left ventricular hypertrophy. The left ventricular ejection fraction is 65 %. No regional wall motion abnormalities noted. Right Ventricle Normal RV size. Normal systolic function. Atria Normal left atrium. Normal right atrium. Mitral Valve Normal mitral valve. Tricuspid Valve Normal tricuspid valve. Mild (1+) tricuspid valve insufficiency. Pulmonary artery systolic pressure is 26 mmHg. Aortic Valve Trisinus/trileaflet aortic valve. Pulmonic Valve Normal pulmonic valve. Great Vessels Normal aortic root. The pulmonary artery is normal size. Normal inferior vena cava. Pericardium/Pleural No pericardial effusion. MMode/2D Measurements & Calculations LVIDd: 4.5 cm IVSd: 1.5 cm Ao root diam: 3.5 cm LVIDs: 2.8 cm LVPWd: 1.0 cm RVDd: 3.1 cm FS: 37.8 % LAV(MOD-bp): 53.9 ml LVAd ap4: 30.9 cm2 SV(MOD-sp4): 64.2 ml LAV(MOD-bp) Indexed: 24.5 ml/m2 LVLd ap4: 8.1 cm SI(MOD-sp4): 29.2 ml/m2 LAV(MOD-sp2): 50.9 ml EDV(MOD-sp4): 98.2 ml LAV(MOD-sp4): 45.8 ml EDV(sp4-el): 100.3 ml LVAs ap4: 16.6 cm2 LVLs ap4: 6.9 cm ESV(MOD-sp4): 34.0 ml ESV(sp4-el): 34.1 ml EF(MOD-sp4): 65.4 % EF(sp4-el): 66.0 % SV(sp4-el): 66.2 ml LA A4 area: 18.3 cm2 LA dimension(2D): 4.1 cm RA A4 area: 14.8 cm2 TAPSE: 1.9 cm Time Measurements MV dec time: 0.19 sec Doppler Measurements & Calculations MV E max srini: 67.1 cm/sec Lat Peak E' Srini: 12.6 cm/sec Med Peak E' Srini: 8.8 cm/sec MV A max srini: 60.1 cm/sec E/E' lat: 5.3 E/E' med: 7.6 MV E/A: 1.1 MV V2 max: 79.3 cm/sec MV P1/2t max srini: 80.3 cm/sec Ao V2 max: 107.4 cm/sec MV max P.5 mmHg MV P1/2t: 67.8 msec Ao max P.6 mmHg MV V2 mean: 37.6 cm/sec Ao V2 mean: 81.2 cm/sec MV mean P.70 mmHg MV dec slope: 346.9 cm/sec2 Ao mean P.9 mmHg MV V2 VTI: 24.3 cm MVA(P1/2t): 3.2 cm2 Ao V2 VTI: 27.0 cm AV (velocity ratio): 0.91 LV V1 max: 96.6 cm/sec MR max srini: 471.1 cm/sec PA V2 max: 99.7 cm/sec LV V1 max P.7 mmHg MR max P.8 mmHg LV V1 mean P.3 mmHg LV V1 mean: 71.4 cm/sec LV V1 VTI: 24.4 cm TR max srini: 242.2 cm/sec TR max P.5 mmHg ECHO/Echo Complete Interpretation Summary Normal LV size. The left ventricular ejection fraction is 65 %. Moderate eccentric left ventricular hypertrophy. Pulmonary artery systolic pressure is 26 mmHg. Ordering Physician: Dora Myers Referring Physician: Dora Myers Performed By: Vini Masters RCS
== END | disposition home or self-care (01) ==
LOC: CVS 13:43
PROVIDERS: PCP Internal Medicine; Referring Provider Nurse Practitioner Gerontology; Visit Provider Nurse Practitioner Gerontology
DX: I51.7 Cardiomegaly (principal)
CPT/HCPCS: 93306

== ENCOUNTER → 2024-11-14 | Outpatient (CLI) | payer OTHER, SELFPAY ==
[2024-11-14 12:44] LABS: Hematocrit 46.7 % (40-54); Hemoglobin 15.5 g/dL (13.0-16.5); Immature Granulocytes Count 0.020 X10^3/uL (0.0-0.0); Mean Corp Hgb Conc 33.2 g/dL (32-36); Mean Corpuscular Volume 90.0 fL (80-94); Mean Platelet Vol. 9.8 fl (6.2-12.0); NRBC Flagged by Analyzer 0 % (0-5); Platelet Count 271 K/mm3 (150-450); RBC Distribution Width CV 12.5 % (11.6-14.6); RBC Distribution Width SD 41.4 fl (35.1-43.9); Red Blood Count 5.19 M/mm3 (4.6-6.2); White Blood Count 5.9 K/mm3 (4.4-11.0)
[2024-11-14 13:18] LABS: AST(SGOT) 22 U/L (<=37); Alanine Aminotransfer ALT/SGPT 17 U/L (<=46); Albumin, Serum 4.4 g/dL (3.5-5.0); Alkaline Phosphatase 78 U/L (40-129); Anion Gap 11 (5-15); BUN 13 mg/dL (4-19); BUN/Creat Ratio 12.6 RATIO (10-20); Calcium,Total 9.6 mg/dL (7.6-11.0); Carbon Dioxide 25.2 mmol/L (21.0-32.0); Chloride 102 mmol/L (98-108); Cholesterol 183 mg/dL (<=200); Globulin 2.6 g/dL (2.2-4.2); Glucose 101 mg/dL (70-99); Low Density Lipoprotein Calc. 104 mg/dL; PSA,Total- Diagnostic 0.91 ng/mL (0.00-4.00); Potassium 4.7 mmol/L (3.3-5.1); Triglycerides 124 mg/dL; Very Low Density Lipoprotein 25 mg/dL (5-40); cholesterol:hdl ratio screen 3.40
== END | disposition home or self-care (01) ==
LOC: BIMLAB 08:40
PROVIDERS: PCP Internal Medicine; Visit Provider Internal Medicine
DX: Z13.6 Encounter for screening for cardiovascular disorders (principal); E05.90 Thyrotoxicosis, unspecified without thyrotoxic crisis or storm; N52.9 Male erectile dysfunction, unspecified; I51.7 Cardiomegaly
CPT/HCPCS: 36415; 80053; 80061; 84153; 84402; 84443; 85025

== ENCOUNTER 2024-11-28 10:46 | Day surgery (SDC) | payer OTHER, SELFPAY ==
--- NOTE | 2024-11-26 15:57 | PAT.ANESEVAL ---
Pre-Assessment Diagnosis/Proposed Procedure Planned Operative Procedure(s): COLONOSCOPY Anesthesia History Anesthesia History - assistant guest services manager: Anesthesia History - assistant guest services manager Hx Hospitalization No 11/26/24 13:55 Any Problems With Anesthesia No 11/26/24 13:55 Cholinesterase deficiency No 11/26/24 13:55 You/Your Family Experience No 11/26/24 13:55 fever (hyperthermia) with Relationship Recent Exposure to Contagious No 04/27/24 12:16 Disease Does patient have nerve No 11/26/24 13:55 stimulator Patient instructed to have device shut off --Does patient have Pacemaker or ICD? When Was Last Pacemaker Check QUESTION #4 FULL TEXT: You/Your Family Experience fever (hyperthermia) with Anesthesia Last Oral Intake Last Oral intake: Last Oral Intake NPO since Meds taken in AM with sips of water? Meds patient instructed to take am of surgery PONV PONV - assistant guest services manager: PONV - assistant guest services manager Female No 11/26/24 13:55 HX of Motion Sickness No 11/26/24 13:55 HX of N/V After Surgery No 11/26/24 13:55 Non-Smoker Yes 11/26/24 13:55 Duration of Surgery greater No 11/26/24 13:55 than 60 minutes Number of Risk Factors 1 11/26/24 13:55 PONV Score Low Risk 11/26/24 13:55 Height & Weight Height & Weight: Anesthesia: Height & Weight Height 5 ft 11 in 10/25/24 09:39 Respiratory Assessment Respiratory Assessment - assistant guest services manager: Respiratory Tract Infection Hx - assistant guest services manager Hx Respiratory Tract Infection No 11/26/24 13:55 STOP Sleep Apnea STOP Sleep Apnea - assistant guest services manager: STOP Sleep Apnea - assistant guest services manager Hx Hypertension No 11/26/24 13:55 Hx Sleep Apnea No 11/26/24 13:55 CPAP BIPAP Do you snore loudly (louder No 11/26/24 13:55 than talking or can be heard Do you often feel tired/ No 11/26/24 13:55 fatigued/ sleepy during daytime? Has anyone observed you stop No 11/26/24 13:55 breathing during sleep? STOP Results Negative 11/26/24 13:55 QUESTION #5 FULL TEXT : Do you snore loudly (louder than talking or can be heard through closed doors)? 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 Specify any problems Hx of Preganancy in last 3 N/A 11/26/24 13:55 Months Nurse Filling Out Transfusion [email or web address] 11/26/24 13:55 & Questions: Date: 11/26/24 11/26/24 13:55 Time: 13:57 11/26/24 13:55 Patient unable to answer at this time (ie. confused, unrespo /Reproduction History /Reproductive History - assistant guest services manager: /Reproductive Hx- assistant guest services manager Hx Now Gestational Age (in weeks): EDC: Hx Hx Para Hx Section SAB PFSH Medical History (Updated 11/26/24 @ 14:05 by René Vu) Wears partial dentures Alcohol use Burn Holter monitor, abnormal History of stress test History of echocardiogram Cardiology follow-up encounter Moderate left ventricular hypertrophy Chronotropic incompetence Obesity Second degree AV block, Mobitz type I Carpal tunnel syndrome of right wrist GERD (gastroesophageal reflux disease) Former smoker Orthostatic hypotension Erectile dysfunction Home Medications ?Medication ?Instructions ?Recorded ?Last Taken ?Type tadalafil 5 mg tablet 5 mg PO DAILY PRN for intercourse 08/02/24 Unknown Rx #30 tabs Allergy/AdvReac Type Severity Reaction Status Date / Time venom-honey bee (bee venom Allergy Anaphylaxis Verified 11/26/24 13:54 (honey bee)) Family History (Updated 10/25/24 @ 10:[address] Zarina Farnsworth MD) Sister Breast cancer Brother Heart disease LVH Mother Heart disease LVH Surgical History History of carpal tunnel surgery of right wrist Social History (Updated 10/25/24 @ 10:[address] 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 Sinus rhythm. Anterior lateral ST elevation?repolarization variant. Probably normal. Stress test pertinent findings: October 27, 2020. Intermittent 2-1 heart block at rest. Not improving with exercise. Significant shortness of breath necessitating termination of test. Echo (EF%) pertinent findings: August 28, 2024. EF of 65%. PASP is 26 mmHg. No aortic valve stenosis. Consult pertinent findings: August 02, 2024. Louis CONNOLLY. 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 Stress test in October 2020 showed chronotropic incompetence. Patient states he is able to exercise without concern. Continue to monitor. 2. Moderate left ventricular hypertrophy-patient's last echo in October 2020 showed moderate eccentric LVH. Blood pressure is well-controlled today. Will check a repeat echo to reassess. (See above). 3. Hyperthyroidism?history of. Patient is not currently being followed by primary care. Encouraged to reestablish with new PCP. Additional pertinent findings: November 25, 2020. Average heart rate is normal sinus rhythm with first-degree AV block. Total of 167 supraventricular ectopic beats comprised 0.2% of the total QRS complexes. There were only 11 ventricular ectopic beats. No atrial fibrillation. No ventricular tachycardia. No symptoms recorded on the patient's diary. Recommendation Anesthesia Recommendation Anesthesia recommendation: OPTIMIZED for anesthesia
[2024-11-28] VITALS (9 sets, daily range): BP systolic 110–129; BP diastolic 74–83; PULSE 55–74; RESP 16–20; TEMP 36.2; O2SAT 97–100; BMI 28.9
--- NOTE | 2024-11-28 11:10 | H&P.OPEN ---
[facility] - General General Date of Service: 11/28/24 HPI Narrative CHARLA RUIZ, is a 54 M who presents for screening colonoscopy. Patient never had previous colonoscopy. Patient denies any family history of colon cancer. Patient denies any chronic abdominal pain/nausea/vomiting/reflux. Patient has bowel movements daily denies any blood. [facility] Medical History (Updated 11/28/24 @ 11:[address] Marzena Cabral MD) Wears partial dentures Alcohol use Burn Holter monitor, abnormal History of stress test History of echocardiogram Cardiology follow-up encounter Moderate left ventricular hypertrophy Chronotropic incompetence Obesity Second degree AV block, Mobitz type I Carpal tunnel syndrome of right wrist GERD (gastroesophageal reflux disease) Former smoker Orthostatic hypotension Erectile dysfunction Home Medications ?Medication ?Instructions ?Recorded ?Last Taken ?Type tadalafil 5 mg tablet 5 mg PO DAILY PRN for intercourse 08/02/24 Unknown Rx #30 tabs Allergy/AdvReac Type Severity Reaction Status Date / Time venom-honey bee (bee venom Allergy Anaphylaxis Verified 11/26/24 13:54 (honey bee)) Family History (Updated 10/25/24 @ 10:[address] Zarina Farnsworth MD) Sister Breast cancer Brother Heart disease LVH Mother Heart disease LVH Surgical History History of carpal tunnel surgery of right wrist Social History (Updated 10/25/24 @ 10:[address] 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 Smoking Status: Former smoker quit date: 04/11/05 pack-years: 15 Tobacco: How many years used: 15 alcohol intake: current alcohol intake frequency: holidays/special occasions only substance use type: does not use caffeine: Yes Type: coffee Number of servings: 1 what type of physical activity do you participate in: none do you feel safe at home: Yes Past Medical/Surgical History Planned Operation Planned Operative Procedure(s): COLONOSCOPY S.O.S: No Previous Hospitalizations/Surgeries HX Hospitalizations: No HX of Surgeries: CARPEL TUNNEL Any Problems With Anesthesia: No You/Your Family Experience Fever (Hyperthermia) With Anes: No Cholinesterase deficiency: No Cardiovascular Hx Chest Pain within Last 2 months: No Hx of Irregular Heartbeat and/or Afib: No Hx Heart Attack: No Hx Congestive Heart Failure: No Hx Rheumatic Fever: No Hx Hypertension: No Hx Internal Defibrillator: No Hx Pacemaker: No Hx Cardiac Catheterization: No Hx Cardiac Surgery/Stents/Etc.: No Hx Stress Test: No Hx Pain in Legs when Walking/Leg Cramps: No Respiratory Chronic Cough: No HX of Shortness of Breath: No Hoarseness: No Hx Chronic Obstructive Pulmonary Disease (COPD): No Hx Asthma: No Hx Emphysema: No Hx Sleep Apnea: No Hx Respiratory Tract Infection/Cold (presently): No Do You Snore Loudly (louder than talking or can be heard): No Do You Often Feel Tired/ Fatigued/ Sleepy Dring Daytime?: No Has Anyone Observed You Stop Breathing During Sleep?: No Result (for STOP score): Negative Hx Smoking: Yes Smoking Status: Former smoker Gastrointestinal Hx Gastrointestinal Disorders: No Hx Gastrointestinal Bleed: No Hx Ulcer: No Hx Hiatal Hernia: No Difficulty Chewing/Swallowing: No Special diet followed at home: No Hx Unplanned Weight Loss of 20#: No HX Unplanned Weight Gain of 20#: No Neurological Hx Seizures: No HX Syncope/Blackout Spells/Unconsciousness: No Hx Transient Ischemic Attacks (TIA): No Hx Multiple Sclerosis: No Hx Parkinson's Disease: No Hx Head/Neck Injury: Yes (VERTEBRAE DISLOCATION FROM FALL) Hx Headaches: No Hx Back Injury/Pain: No Recent Onset of Speech Difficulty: No Restless Legs: No Does patient have nerve stimulator: No Blood Disorder Hx Leukemia: No Bleeding Tendencies: No Hx Deep Vein Thrombosis: No Hx High Cholesterol: No Blood Transmitted Disease: No Hx Hepatitis: No Hx Cirrhosis: No Hx Anemia: No Hx Blood Disorders: No Genitourinary Hx Renal Disease: No Musculoskeletal Hx Arthritis: No Hx Rheumatoid Arthritis: No Hx Gout: No Recent Onset of an Orthopedic Problem: No Endocrine Hx Diabetes: No Thyroid Disease: No Hx Steroid Therapy: Yes (CORTISONE INJ) Psycho/Social Hx Substance Use: No Hx Alcohol Use: No Hx Anxiety: No Hx Depression: No Mental Illness: No Hx Dementia: No Miscellaneous Hx Cancer: No Recent Exposure to Contagious Disease: No Hx of C-Diff: No Any Loose Teeth: No Allergies venom-honey bee (bee venom (honey bee)) Allergy (Verified 11/26/24 13:54) Anaphylaxis Discharge After D/C, Where Do you Plan to Go: Return Home Physical Exam Const alert, oriented x3 and no apparent distress HEENT normocephalic and head/scalp atraumatic Resp normal respiratory effort Cardio regular rate GI soft to palpation and non-tender; Negative for non-distended Palpation: Negative for guarding Extremity no clubbing, cyanosis or edema Skin no rashes or lesions noted Neuro CN's II-XII intact bilaterally Psych mental status grossly normal Assessment & Plan Assessment/Plan (1) Screening for colon cancer: Surgery Risks - Colonoscopy I discussed with the patient the risks of the procedure: Yes Risks Include but are not Limited To: Risks include but are not limited to: Bleeding, perforation requiring further surgery, inability to complete colonoscopy requiring barium enema.
[2024-11-28] MEDS: Lactated Ringers 1,000 ML 15 ML IV (11:12)
--- NOTE | 2024-11-28 12:00 | COLBX_PTH ---
PATIENT: CHARLA RUIZ LOC: EN U#:[id number] AGE/SX: 54/M ROOM: RE11/28/[address]: Dr. Marzena Cabral MD : 1970 BED: DIS: 11/28/2024 SPEC #: [id number] RECD: 11/28/24 13:51 STATUS: SHWETA REHimanshu #: [id number] AYLA: 11/28/24 12:[address]: Marzena Cabral DEPT: SURGICAL PATHOLOGY RECD BY: Segun Manuel ENTERED: 11/28/24 14:33 SP TYPE: COLON BX OTHR DR: Dr. Zarina Farnsworth MD Tissues: A - Ascending colon Procedures: Surgery Specimen Level IV HEADER OPERATION: Colonoscopy with biopsy PRE-OP DIAGNOSIS: Screening for colon cancer, polyp TISSUE SUBMITTED: A- Ascending colon polyp biopsy MICROSCOPIC DIAGNOSIS A. Large intestine, ascending polyp, biopsy: * Tubular adenoma MICROSCOPIC DESCRIPTION Slides are reviewed. GROSS DESCRIPTION A. Received in fixative is one container labeled with the patient's name and designated Ascending colon polyp. The specimen consists of two irregular fragments of light hannah tissue that measure <0.1 and 0.3 cm. Smallest fragment may not survive processing. The specimen is totally submitted in one cassette. SD 11/28/2024 CPT:52350
--- NOTE | 2024-11-28 12:01 | PRE.ANES_ITS ---
ASA Classification* ASA Classification ASA Classification: 2 Assessment & Plan Anesthesia* Anesthesia Assessment Anesthesia Assessment: Discussed sedation and/or anesthesia options, risks, benefits, and alternatives with patient/parents/legal guardian/POA. Questions invited. The patient/parents/legal guardian/POA seems to understand and agrees to proceed with anesthesia plan. Reviewed the physical assessment, medical history, allergy history and patient home medications list prior to surgery/procedure/anesthetic and documented any changes. Performed airway and anesthesia risk assessments. Anesthesia Type Anesthesia Type: MAC History Source History Obtained from:: Patient and Chart Anesthesia Focused Assessment* Temperature: 97.1 F Pulse Rate: 68 Blood Pressure: 116/80 Respiratory Rate: 16 Pulse Ox: 98 Oxygen Delivery Method: Room Air Airway Assessment Mouth opens: >3 cm Mallampati Score: III Teeth Condition: Partial (Patient has partials upper and lower. They will stay in.) Neck Range of motion (ROM): Full ROM Labs Anesthesia Preop lab: CBC WBC 5.9 K/mm3 (4.4-11.0) 11/14/24 08:40 11/14/24 RBC 5.19 M/mm3 (4.6-6.2) 11/14/24 08:40 11/14/24 Hgb 15.5 g/dL (13.0-16.5) 11/14/24 08:40 11/14/24 Hct 46.7 % (40-54) 11/14/24 08:40 11/14/24 Plt Count 271 K/mm3 (150-450) 11/14/24 08:40 11/14/24 CHEMISTRY Potassium 4.7 mmol/L (3.3-5.1) 11/14/24 08:40 11/14/24 Sodium 138 mmol/L (133-145) 11/14/24 08:40 11/14/24 Magnesium 2.2 mg/dL (1.6-2.6) 10/16/20 20:55 10/16/20 BUN 13 mg/dL (4-19) 11/14/24 08:40 11/14/24 Creatinine 1.00 mg/dL (0.70-1.20) 11/14/24 08:40 11/14/24 Glucose 101 mg/dL (70-99) H 11/14/24 08:40 11/14/24 TSH 1.440 uIU/mL (0.300-4.200) 11/14/24 08:40 0810/03 COAG Pre-Assessment Diagnosis/Proposed Procedure Planned Operative Procedure(s): COLONOSCOPY Anesthesia History Anesthesia History - reservoir 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 When Was Last Pacemaker Check QUESTION #4 FULL TEXT: You/Your Family Experience fever (hyperthermia) with Anesthesia Last Oral Intake Last Oral intake: Last Oral Intake NPO since 00:00 11/28/24 11:14 Meds taken in AM with sips of No 11/28/24 11:14 water? Meds patient instructed to take am of surgery PONV PONV - reservoir engineering advisor: PONV - reservoir engineering advisor Female No 11/26/24 13:55 HX of Motion Sickness No 11/26/24 13:55 HX of N/V After Surgery No 11/26/24 13:55 Non-Smoker Yes 11/26/24 13:55 Duration of Surgery greater No 11/26/24 13:55 than 60 minutes Number of Risk Factors 1 11/26/24 13:55 PONV Score Low Risk 11/26/24 13:55 Height & Weight Height & Weight: Anesthesia: Height & Weight Height 5 ft 11 in 11/28/24 11:14 Weight: 94 kg 11/28/24 11:14 Body Mass Index (BMI) 28.9 11/28/24 11:14 Respiratory Assessment Respiratory Assessment - reservoir engineering advisor: Respiratory Tract Infection Hx - reservoir engineering advisor Hx Respiratory Tract Infection No 11/28/24 11:11 STOP Sleep Apnea STOP Sleep Apnea - reservoir engineering advisor: STOP Sleep Apnea - reservoir engineering advisor Hx Hypertension No 11/28/24 11:11 Hx Sleep Apnea No 11/28/24 11:11 CPAP BIPAP Do you snore loudly (louder No 11/28/24 11:11 than talking or can be heard Do you often feel tired/ No 11/28/24 11:11 fatigued/ sleepy during daytime? Has anyone observed you stop No 11/28/24 11:11 breathing during sleep? STOP Results Negative 11/28/24 11:18 QUESTION #5 FULL TEXT : Do you snore loudly (louder than talking or can be heard through closed doors)? 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 Specify any problems Hx of Preganancy in last 3 N/A 11/26/24 13:55 Months Nurse Filling Out Transfusion [email or web address] 11/26/24 13:55 & Questions: Date: 11/26/24 11/26/24 13:55 Time: 13:57 11/26/24 13:55 Patient unable to answer at this time (ie. confused, unrespo /Reproduction History /Reproductive History - reservoir engineering advisor: /Reproductive Hx- reservoir engineering advisor Hx Now Gestational Age (in weeks): EDC: Hx Hx Para Hx Section SAB Active Medications Active Medications: Current Medications Generic Name Dose Route Start Last Admin Trade Name Freq PRN Reason Stop Dose Admin Lactated Ringer's 1,000 mls @ 15 mls/hr 11/28/24 11:00 11/28/24 11:12 IV 15 mls/hr .Q48H LALA Administration PFSH Medical History Wears partial dentures Alcohol use Burn Holter monitor, abnormal History of stress test History of echocardiogram Cardiology follow-up encounter Moderate left ventricular hypertrophy Chronotropic incompetence Obesity Second degree AV block, Mobitz type I Carpal tunnel syndrome of right wrist GERD (gastroesophageal reflux disease) Former smoker Orthostatic hypotension Erectile dysfunction Home Medications ?Medication ?Instructions ?Recorded ?Last Taken ?Type tadalafil 5 mg tablet 5 mg PO DAILY PRN for interc ourse 08/02/24 Unknown Rx #30 tabs Allergy/AdvReac Type Severity Reaction Status Date / Time venom-honey bee (bee venom Allergy Anaphylaxis Verified 11/26/24 13:54 (honey bee)) Family History Sister Breast cancer Brother Heart disease LVH Mother Heart disease LVH Surgical History (Updated 11/28/24 @ 12:[address] 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
[2024-11-28] MEDS: Lactated Ringers 1,000 ML 1000 ML IV (12:27)
--- NOTE | 2024-11-28 13:00 | PCM.POST.ANE ---
Anesthesia: Postop Eval I Current Vital Signs Temperature: 97.2 F Pulse Rate: 74 Blood Pressure: 110/80 Respiratory Rate: 20 Pulse Ox: 97 Oxygen Delivery Method: Room Air Assessment Airway patent: Yes Spontaneous unlabored respirations: Yes Mental status: Awake nausea: No Vomiting: No Anesthesia Complication: No Fluid Hydration Crystalloid volume administer (ml): 300 Total IV fluid infused: 300 Progress Note Anesthesia document: Postop Eval 1 completed: Yes
--- NOTE | 2024-11-28 13:04 | OP.COLON_ITS ---
Patient Name: Farzad Tompkins Procedure Date: 11/28/2024 12:28 PM Date of : 1970 Age: 54 Procedure: Colonoscopy Indications: Screening for colorectal malignant neoplasm Providers: Marzena Cabral MD Referring MD: Zarina Farnsworth Md Medicines: Monitored Anesthesia Care Patient Profile: This is a 54 year old male. Last Colonoscopy: none. The patient's first colonoscopy is today. Complications: No immediate complications. Procedure: Pre-Anesthesia Assessment: - Prior to the procedure, a History and Physical was performed, and patient medications and allergies were reviewed. The patient's tolerance of previous anesthesia was also reviewed. The risks and benefits of the procedure and the sedation options and risks were discussed with the patient. All questions were answered, and informed consent was obtained. Prior Anticoagulants: The patient has taken no anticoagulant or antiplatelet agents. ASA Grade Assessment: Per anesthesia. After reviewing the risks and benefits, the patient was deemed in satisfactory condition to undergo the procedure. After I obtained informed consent, the scope was passed under direct vision. Throughout the procedure, the patient's blood pressure, pulse, and oxygen saturations were monitored continuously. The colonoscope was introduced through the anus and advanced to the cecum, identified by the appendiceal orifice, ileocecal valve and palpation. The colonoscopy was performed without difficulty. The patient tolerated the procedure well. The quality of the bowel preparation was good. Scope In: 12:32:19 PM Scope Withdrawal Time 0 hours 14 minutes 31 seconds Scope Out: 12:53:07 PM Total Procedure Duration Time 0 hours 20 minutes 48 seconds Findings: The perianal and digital rectal examinations were normal. A less than 5 mm polyp was found in the ascending colon. The polyp was sessile. The polyp was removed with a cold biopsy forceps. Resection and retrieval were complete. Biopsies were taken with a cold forceps for histology. The exam was otherwise without abnormality on direct and retroflexion views. Impression: - One less than 5 mm polyp in the ascending colon, removed with a cold biopsy forceps. Resected and retrieved. Biopsied. - The examination was otherwise normal on direct and retroflexion views. Recommendation: - Discharge patient to home. - Resume previous diet. - Continue present medications. - Await pathology results. - Repeat colonoscopy in 5 years for surveillance based on pathology results. Procedure Code(s): --- Professional --- 22862, PT, Colonoscopy, flexible; with biopsy, single or multiple Diagnosis Code(s): --- Professional --- Z12.11, Encounter for screening for malignant neoplasm of colon D12.2, Benign neoplasm of ascending colon CPT copyright 2021 [employer]. All rights reserved. The codes documented in this report are preliminary and upon sand sifter review may be revised to meet current compliance requirements. MD Marzena Miguel MD 11/28/2024 1:03:23 PM This report has been signed electronically. Number of Addenda: 0 Note Initiated On: 11/28/2024 12:28 PM
--- NOTE | 2024-11-28 13:04 | OP.PROVAT_ITS ---
11/28/2024 Zarina Farnsworth Md Re : Colonoscopy procedure for Farzad Tompkins Dear Daja This procedure was performed on Thursday, November 28, 2024. My impressions and recommendations are as follows: Impressions : - One less than 5 mm polyp in the ascending colon, removed with a cold biopsy forceps. Resected and retrieved. Biopsied. - The examination was otherwise normal on direct and retroflexion views. Recommendations : - Discharge patient to home. - Resume previous diet. - Continue present medications. - Await pathology results. - Repeat colonoscopy in 5 years for surveillance based on pathology results. My findings are described in the full procedure note, which is enclosed. If I can be of further assistance, please feel free to contact me at Doctor phone number(s): , Work: . Sincerely, MD Marzena Miguel MD 11/28/2024 1:03:23 PM This report has been signed electronically.
== END 2024-11-28 13:46 | disposition home or self-care (01) ==
LOC: EN 10:47 → AC 10:48
PROVIDERS: PCP Internal Medicine; Referring Provider Internal Medicine; Visit Provider Surgery
PROC: 0DJD8ZZ Inspection of Lower Intestinal Tract, Via Natural or Artificial Opening Endoscopic (ICD-10-PCS; CPT 45378; principal; 2024-11-28 11:55)
DX: Z12.11 Encounter for screening for malignant neoplasm of colon (principal); Z87.891 Personal history of nicotine dependence; K63.5 Polyp of colon
CPT/HCPCS: 45380; 88305